=== PATIENT | male | born 1935 | race Caucasian/White ===

== ENCOUNTER → 2016-12-19 | Outpatient (CLI) | payer OTHER ==
[~2016-12-19] VITALS: Ht 177.8 cm; Wt 99.8 kg
[~2016-12-19] MED LIST: ALDACTONE50 MG PO; AMARYL4 MG PO; GLUCOSAMINE CH1 EAC2 PO; METFORMIN HCL500 MG PO; OMEPRAZOLE 20 M20 M1 PO; ONGLYZA5 MG PO
--- NOTE | ~2016-12-19 | S ---
[facility] [place] [address] [address] SURGICAL PATH RPT PROCEDURE Name: LEXIS TOSCANO Room #: REG ACE M.Jeana.#: [id number] Admission: 12/19/16 Date of : 39 Discharge: Report #: [id number] Path Case #: [id number] PATHOLOGY REPORT COLLECTION DATE: 12/19/2016 RECEIVED DATE: 12/19/2016 SUBMITTING PHYS: Dr. Luis Antonio Monterroso OTHER PHYS: Dr. Bessy Arteaga SPECIMEN(S) RECEIVED: A.Polypectomy of gastric of stomach body * * * * * * * * * * * * FINAL DIAGNOSIS: Polyp, of gastric of stomach, endoscopic biopsy: - Compatible with an inflamed hyperplastic polyp. - Negative for dysplasia, intestinal metaplasia, or malignancy. (IUV:pit; 12/21/2016) PATHOLOGIST: Anjana Sánchez M.D. REPORT ELECTRONICALLY SIGNED BY: Anjana Sánchez M.D. DATE/TIME: 12/21/2016 16:23 * * * * * * * * * * * * GROSS PATHOLOGY: Received in formalin labeled "Lexis Toscano, polyp of gastric of stomach biopsy," is a segment of delgado soft tissue measuring 0.5 cm in maximum dimension. The specimen is submitted entirely in cassette A1. (DAC; 12/20/2016) CLINICAL HISTORY: GERD, possible varices, banding INITIAL CPT CODE(S): A; 30432 Professional services performed by [facility] at [facility] [address] , [place] [address] Technical services performed by [facility] at [address] [place] [address], [address], [place] [address]. [facility] [address] [place] [address] SURGICAL PATH RPT PROCEDURE Name: LEXIS TOSCANO Room #: REG ACE Escalante#: [id number] Admission: 12/19/16 Date of : 37 Discharge: Report #: [id number] Path Case #: [id number] [address] PHONE: [phone] DIRECTOR: James Bronson M.D. * * * END OF REPORT * * *
--- NOTE | ~2016-12-19 | P ---
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 He had an upper endoscopy about 6 months ago revealing varices and presents today for followup. There is also a very questionable segment of Carvajal mucosa, which was not biopsied due to esophageal varices. He is also noted to have portal hypertensive gastropathy. PREOPERATIVE DIAGNOSIS: Cirrhosis for followup of esophageal varices. POSTOPERATIVE DIAGNOSES: 1. A 2 to 3+ esophageal varices. 2. Questionable tongue of Carvajal mucosa. 3. Bleeding polyp, body of the stomach. 4. Portal hypertensive gastropathy of stomach. 5. Retained solid food of stomach consistent with gastroparesis. MEDICATIONS: Deep sedation with propofol per anesthesia. SPECIMEN: None. ESTIMATED BLOOD LOSS: Less than 10 mL. PROCEDURE: EGD with snare polypectomy with hemostasis and banding of esophageal varices. FINDINGS: Prior to propofol sedation, procedure of upper endoscopy and banding was discussed with the patient as well as potential risks and its complications. He indicates he understands and desires to proceed. DESCRIPTION OF PROCEDURE: With the patient in left lateral decubitus position, the Fuji video endoscope was inserted in cervical esophagus under direct vision without difficulty. Examination of this organ through its entire length revealed 2 to 3+ esophageal varices in the distal esophagus. There were at least 3 columns of esophageal varices. However, active bleeding was not seen. In addition, an irregular squamocolumnar junction was once again noted and there [facility] [address] [place] [address] PROCEDURE REPORT Name: LEXIS RAMIREZ Room #: REG [facility].#: [id number] Admission: 12/19/16 Attend Phys: Luis Antonio Monterroso MD Discharge: Date of : 37 Report #: [id number] is a possible tongue of Carvajal mucosa. The mucosa appeared to be flat. Again due to his portal hypertension, biopsies were not obtained. Scope was advanced in the stomach, which was examined on end view as well as retroflexed views. Examination of the stomach with end views as well as retroflexed views revealed an area of bright red blood in the distal body of the stomach. This area was further cleared and evaluated and there was noted to be about an 8 mm sessile polyp with oozing of bright red blood. Brisk bleeding was not encountered. Further examination of the stomach on end view as well as retroflexed views revealed evidence of portal hypertensive gastropathy. No other bleeding. 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 The pylorus was patent and there was no obstruction. Also upon retroflexion, no mass lesions were seen in the cardia. The pylorus, duodenal bulb and postbulbar sweep were inspected and noted to be within normal limits. At that point, the scope was drawn back in the body of the stomach. The area of the oozing polyp was irrigated and continued to be oozing. We then did a cold snare polypectomy, removed the polyp and covered with the Mitchell net. The scope was re-introduced and the polypectomy site was identified. It was flat. There was still some oozing. Hemoclip was placed on the polypectomy site with hemostasis and no further oozing was encountered. The scope was then withdrawn back in the esophagus and once again he was noted to have at least 2+ varices and possibly one column which is 3+. Active bleeding was not encountered. It was decided to go ahead and band the varices. The scope was withdrawn and fitted with the banding device, which was reinserted. One band was placed just above the GE junction on all 3 columns. There was good hemostasis. After placement of third band, band became dislodged off of the device. This was in the area of about the level of the banded varices in the distal esophagus. We withdrew the scope and removed the banding device and reinserted the scope. I could not see the band. It was difficult to pass the scope around the banded varices. The esophagus was carefully inspected throughout its entire length, and we also inspected the oropharynx with the scope. The band could not be found anywhere. It was felt that it did pass down into the varices and likely into the stomach. Once the esophagus was noted to be cleared, the scope was withdrawn. The patient tolerated the procedure well. CONDITION OF THE PATIENT UPON DISCHARGE: Following procedure, the patient was drowsy, will be discharged home when fully ambulatory. INSTRUCTIONS TO THE PATIENT AND FAMILY AT THE TIME OF DISCHARGE: Start clear liquids today. Advance diet as tolerated. He should continue his PPI at this point in time. We will have him return to see me in followup in the office in [facility] [address] [place] [address] PROCEDURE REPORT Name: LEXIS RAMIREZ Room #: REG [facility].#: [id number] Admission: 12/19/16 Attend Phys: Luis Antonio Monterroso MD Discharge: Date of : 37 Report #: [id number] the near future. We would consider repeat EGD and banding in about 6 months or so. Also with his bleeding, we will obtain a CBC today. <ELECTRONICALLY SIGNED> By: Luis Antonio Monterroso MD 12/20/16 0744 1104 2223 Luis Antonio Monterroso MD /nt
[2016-12-19 11:47] LABS: HEMOGLOBIN 11.6 gm/dL (14.0-18.0); WBC 3.2 thou/uL (4.0-11.0)
[2016-12-19 11:48] LABS: HEMATOCRIT 34.3 % (42.0-52.0); MCH 29.2 pg (26.0-34.0); MCHC 33.9 g/dL (28.0-37.0); MCV 86.3 fL (80.0-100.0); RBC 3.98 mil/uL (4.50-6.00); RDW 15.9 % (10.5-14.5)
== END | disposition home or self-care (01) ==
LOC: GI 08:02
PROVIDERS: Specialist
DX: I85.10 Secondary esophageal varices without bleeding (principal); K31.7 Polyp of stomach and duodenum; E11.43 Type 2 diabetes mellitus with diabetic autonomic (poly)neuropathy; K31.84 Gastroparesis
CPT/HCPCS: 62110; 62900

== ENCOUNTER → 2017-12-28 | Outpatient (CLI) | payer OTHER ==
[~2017-12-28] VITALS: Ht 177.8 cm; Wt 99.3 kg
[~2017-12-28] MED LIST changes: +TOPROL XL50 MG PO; +VITAMIN D50000 UNIT PO
--- NOTE | ~2017-12-28 | P ---
[facility] [place] [place] [address] PROCEDURE REPORT Name: LEXIS RAMIREZ [facility] [id number] Admission: 12/28/17 Attend Phys: Luis Antonio Monterroso MD Discharge: Date of : 37 Report #: [id number] THIS REPORT FOR: //name// CC: Bessy Monterroso OUTPATIENT UPPER ENDOSCOPY REPORT BRIEF HISTORY: The patient is an 82-year-old male with known history of cirrhosis and end-stage liver disease and esophageal varices for surveillance for banding of esophageal varices. PREOPERATIVE DIAGNOSES: Portal hypertension, esophageal varices. POSTOPERATIVE DIAGNOSES: 1. Esophageal varices. 2. Portal hypertensive gastropathy. 3. Retained solid material in stomach, suggestive gastroparesis. MEDICATIONS: Deep sedation with propofol per anesthesia. SPECIMEN: None. ESTIMATED BLOOD LOSS: 3 mL. PROCEDURE: EGD with banding of esophageal varices, distal esophagus. FINDINGS: Prior to propofol sedation, procedure of upper endoscopy and banding of varices was reviewed with the patient as well as potential risks and its complications. He indicates he understands and desires to proceed. DESCRIPTION OF PROCEDURE: With the patient in left lateral decubitus position, Olympus video endoscope was inserted in the cervical esophagus under direct vision without difficulty. Examination of this organ through stomach revealed normal esophageal mucosa in the proximal esophagus. However, we advanced in the mid esophagus, 3 columns of varices were seen. Just above the GE junction, they were judged to be about 2+ in terms of size. There was no evidence of bleeding or stigmata of bleeding. The squamocolumnar junction otherwise appeared unremarkable. The scope was advanced in the stomach, which was examined on end view as well as retroflexed views. There was a diffuse gastritis induced diffuse erythema and edema. There is also prominence of gastric folds, but obvious gastric varices were not seen. These findings were felt to be [facility] [address] [place] [address] PROCEDURE REPORT Name: TRINI RAMIREZCARROLL GARCIA Room #: REG [facility].#: [id number] Admission: 12/28/17 Attend Phys: Luis Antonio Monterroso MD Discharge: Date of : 37 Report #: [id number] consistent with diffuse portal hypertensive gastropathy. Upon retroflexion, no mass lesions were seen. Interestingly, in the body of the stomach, a hemostatic clip was seen. This was at a polypectomy site of 1 year ago. There is no evidence of ulcers or bleeding. Examination of the distal stomach revealed the gastropathy. There was also retained patch material in stomach consistent with gastroparesis. This extended across the pylorus and duodenal bulb. The duodenal bulb was filled with old food material and was not well seen. At that point, scope was slowly withdrawn and careful circumferential views were obtained. The scope was fitted with a banding device and the scope was reinserted in the esophagus. We advanced in the distal esophagus and its total of 3 columns of varices were banded with good success. Trace amount of blood was seen. Significant bleeding was not encountered with the banding. The patient tolerated the procedure well. CONDITION OF THE PATIENT UPON DISCHARGE: Following procedure, the patient was drowsy and will be discharged home when fully ambulatory. INSTRUCTIONS TO THE PATIENT AND FAMILY AT THE TIME OF DISCHARGE: Varices successfully banded as described above. We will have him return in 6 months for repeat evaluation of his esophagus with regards to varices. Also, we will have him return to see me in followup in the office for further evaluation of his liver. <ELECTRONICALLY SIGNED> By: Luis Antonio Monterroso MD 01/01/18 1231 1040 1950 Luis Antonio Monterroso MD /nt
== END | disposition home or self-care (01) ==
LOC: GI 09:10
DX: K74.60 Unspecified cirrhosis of liver (principal); I85.10 Secondary esophageal varices without bleeding; K76.6 Portal hypertension; K31.89 Other diseases of stomach and duodenum; K72.90 Hepatic failure, unspecified without coma; K29.70 Gastritis, unspecified, without bleeding; I10 Essential (primary) hypertension; E11.9 Type 2 diabetes mellitus without complications; T18.2XXA Foreign body in stomach, initial encounter; K21.9 Gastro-esophageal reflux disease without esophagitis; E78.5 Hyperlipidemia, unspecified; Z88.1 Allergy status to other antibiotic agents; Z79.899 Other long term (current) drug therapy; Z79.84 Long term (current) use of oral hypoglycemic drugs; Z87.891 Personal history of nicotine dependence; Z85.118 Personal history of other malignant neoplasm of bronchus and lung; Z85.05 Personal history of malignant neoplasm of liver; Z98.890 Other specified postprocedural states; Z90.89 Acquired absence of other organs; X58.XXXA Exposure to other specified factors, initial encounter; Y93.89 Activity, other specified; Y92.89 Other specified places as the place of occurrence of the external cause; Y99.8 Other external cause status
CPT/HCPCS: 62110; 62900

== ENCOUNTER → 2018-06-08 | Outpatient (CLI) | payer OTHER ==
[~2018-06-08] VITALS: Ht 177.8 cm; Wt 9.1 kg
[~2018-06-08] MED LIST changes: +CENTRUM SILVER1 EAC2 PO
[2018-06-08 09:18] LABS: HEMOGLOBIN 12.1 gm/dL (14.0-18.0); WBC 3.7 thou/uL (4.0-11.0)
[2018-06-08 09:19] LABS: HEMATOCRIT 34.8 % (42.0-52.0); MCH 32.1 pg (26.0-34.0); MCHC 34.7 g/dL (28.0-37.0); MCV 92.7 fL (80.0-100.0); RBC 3.76 mil/uL (4.50-6.00)
[2018-06-08 09:34] LABS: INR 1.2; PROTIME 12.6 Seconds (9.3-11.4)
--- NOTE | 2018-06-11 11:03 | P ---
[facility] [place] [address] [place] [address] PROCEDURE REPORT Name: LEXIS RAMIREZ Room #: REG [facility] [id number] Admission: 06/08/18 Attend Phys: Luis Antonio Monterroso MD Discharge: Date of : 37 Report #: [id number] THIS REPORT FOR: //name// CC: JENI Monterroso BRIEF HISTORY: The patient is an 83-year-old male, known to me with a history of hepatic resection for a hepatoma. He has cirrhosis of liver and esophageal varices. He underwent banding of 3+ varices about 6 months ago. PREOPERATIVE DIAGNOSES: Cirrhosis of liver and esophageal varices. POSTOPERATIVE DIAGNOSES: 1. Grade 1 esophageal varices, nonbleeding. 2. Portal hypertensive gastropathy. 3. Bezoar, antrum of stomach. MEDICATIONS: Deep sedation with propofol per Anesthesia. SPECIMEN: None. ESTIMATED BLOOD LOSS: None. PROCEDURE: EGD. FINDINGS: Prior to propofol sedation, procedure of upper endoscopy discussed with the patient, all potential risks and its complications. He indicates he understands and desires to proceed. With the patient in left lateral decubitus position, the Olympus videoendoscope was inserted in the cervical esophagus under direct vision without difficulty. Examination of this organ through its entire length revealed normal esophageal mucosa in the proximal esophagus, distally there were varices. The esophagus was insufflated and varices flattened. There were 3 columns of varices, they were judged to be about 1+. There was no stigmata of bleeding. It was felt that banding was not needed at this point in time. Also, he has had previous banding, but no esophageal strictures were seen. The scope was advanced in the stomach, which was examined on end view as well as retroflexed views. He has a marked hypertensive portal gastropathy. However, there is no evidence of ulceration. There was no evidence of ongoing bleeding. In the body of the stomach, a hemostatic clip was seen. This was placed at the time of a polypectomy for a bleeding polyp in 11/2016. There was no bleeding at this time. Examination of distal stomach revealed a large bezoar filling the antrum of the stomach. There is no fluid. We tried to pass the scope around the bezoar and try to advance it across the pylorus into duodenum. However, due to [facility] [address] [place] [address] PROCEDURE REPORT Name: LEXIS RAMIREZ Room #: REG ACE Escalante#: [id number] Admission: 06/08/18 Attend Phys: Luis Antonio Monterroso MD Discharge: Date of : 37 Report #: [id number] the size of the bezoar, the pylorus could not be seen. In view of the fact that he has significant residual solid material in the stomach, we did not want to overly distend the stomach resulting in vomiting and that was felt best at this point not to attempt further efforts to advance the scope into the duodenum. At that point, the scope was slowly withdrawn and careful circumferential views were obtained. Retroflexed maneuver of the scope was also completed. No additional abnormalities were identified. Scope was withdrawn and the patient tolerated the procedure well. CONDITION OF THE PATIENT UPON DISCHARGE: The patient is drowsy and will be discharged home when fully ambulatory. INSTRUCTIONS TO THE PATIENT AND FAMILY AT THE TIME OF DISCHARGE: As far his gastric varices, I do not see a need for banding at this point in time. However, would give consideration for repeat examination in about 6 months. He does have evidence of a gastric bezoar. He does have diabetes and likely has gastroparesis. We will have him follow a clear liquid diet for 3 days. We will also have him see a dietitian with regards to dietary changes for gastroparesis. He should return to see me in followup in the office in about 6 weeks. He does complain of frequent throat clearing, but denies heartburn. He is on omeprazole 20 mg daily, we will have him increase it to 40 mg daily. He also has significant abdominal distention on exam today as well as pedal edema. We will obtain an ultrasound to further evaluate his liver as well as to evaluate for ascites. <ELECTRONICALLY SIGNED> By: Luis Antonio Monterroso MD 06/11/18 1103 1015 1431 Luis Antonio Monterroso MD /nt
== END | disposition home or self-care (01) ==
LOC: GI 08:02
PROVIDERS: Anesthesiology
DX: K31.89 Other diseases of stomach and duodenum (principal); I85.00 Esophageal varices without bleeding; K76.6 Portal hypertension; T18.2XXA Foreign body in stomach, initial encounter; I10 Essential (primary) hypertension; E11.9 Type 2 diabetes mellitus without complications; Z87.19 Personal history of other diseases of the digestive system; Z98.890 Other specified postprocedural states; Z79.899 Other long term (current) drug therapy; Z85.118 Personal history of other malignant neoplasm of bronchus and lung; Z85.05 Personal history of malignant neoplasm of liver; Z88.8 Allergy status to other drugs, medicaments and biological substances; X58.XXXA Exposure to other specified factors, initial encounter; Y93.89 Activity, other specified; Y92.89 Other specified places as the place of occurrence of the external cause; Y99.8 Other external cause status

== ENCOUNTER 2018-07-23 11:09 | Inpatient (IN) | payer OTHER ==
[~2018-07-23] VITALS: Ht 175.3 cm; Wt 100.3 kg
[2018-07-23 11:09] VITALS: BP 110/60
[~2018-07-23 11:09] MED LIST changes: +METOPROLOL TART25 MG PO; -TOPROL XL50 MG PO
[2018-07-23 12:02] LABS: ABSOLUTE NEUTROPHILS 2.6 thou/uL (1.4-8.2); HEMOGLOBIN 12.4 gm/dL (14.0-18.0)
[2018-07-23 12:03] LABS: BASOPHILS 0.8 % (0.0-2.0); HEMATOCRIT 37.2 % (42.0-52.0); LYMPHOCYTES 16.4 % (24.0-44.0); MCH 31.5 pg (26.0-34.0); MCHC 33.3 g/dL (28.0-37.0); MCV 94.6 fL (80.0-100.0); POLYS 71.8 % (36.0-66.0); RBC 3.93 mil/uL (4.50-6.00); RDW 15.3 % (10.5-14.5); WBC 3.6 thou/uL (4.0-11.0)
[2018-07-23 12:09] LABS: CALCIUM 9.4 mg/dL (8.5-10.1); CREATININE 1.2 mg/dL (0.7-1.3); POTASSIUM 4.5 mmol/L (3.5-5.1)
[2018-07-23 12:14] LABS: ALBUMIN 2.9 g/dL (3.4-5.0); INR 1.2; TOTAL BILIRUBIN 1.4 mg/dL (<0.1-1.0); TOTAL PROTEIN 6.2 g/dL (6.4-8.2)
[2018-07-23 12:46] LABS: PLATELET COUNT 47 thou/uL (150-400)
[2018-07-23 18:36] VITALS: BP 121/77
[2018-07-23 18:50] VITALS: BP 132/64
[2018-07-23 19:32] VITALS: BP 135/69
[2018-07-24 04:05] VITALS: BP 123/61
[2018-07-24 04:05] LABS: CALCIUM 8.4 mg/dL (8.5-10.1); CREATININE 1.1 mg/dL (0.7-1.3); POTASSIUM 4.2 mmol/L (3.5-5.1)
[2018-07-24 04:42] LABS: HEMATOCRIT 31.4 % (42.0-52.0); HEMOGLOBIN 10.7 gm/dL (14.0-18.0); MCH 32.1 pg (26.0-34.0); MCHC 34.2 g/dL (28.0-37.0); MCV 94.1 fL (80.0-100.0); RBC 3.33 mil/uL (4.50-6.00); RDW 14.6 % (10.5-14.5); WBC 2.8 thou/uL (4.0-11.0)
--- NOTE | 2018-07-24 06:20 | NUR ---
ARRIVED ON UNIT VIA CART FROM ED ACCOMPAINED BY ED OSMAR. PATIENT ALERT AND ORIENTED X4. WALKS STEADY BUT HAS HX OF FALLING SO IS A FALL RISK. ABD VERY DISTENDED AND FIRM. BOWEL SOUNDS ACTIVE. DENIES PAIN. ACCUCHECK WAS 101. RECIEVED NO COVERAGE. PATIENT SLEPT OFF AND ON DURING NIGHT.
[2018-07-24 07:50] VITALS: BP 128/69
[2018-07-24 07:52] VITALS: BP 107/55; BP 112/57
[2018-07-24 11:25] VITALS: BP 136/69
[2018-07-24 11:59] LABS: CLARITY TURBID; COLOR RED; SOURCE ABDOMINAL; TOTAL VOLUME 60 mL
[2018-07-24 12:04] LABS: SOURCE ABDOMINAL
[2018-07-24 12:54] LABS: BF NUCLEATED CELLS 382; BF RBC 31637
[2018-07-24 13:27] LABS: BF MACROPHAGE 18; BF NEUTROPHILS 19
--- NOTE | 2018-07-24 13:33 | NUR ---
ASSUMED CARE AT 0700. AXOX4. 1 UNIT PLATETET GIVEN. US PARACENTESIS COMPLETED. AWAITING GI ROUNDING. SEEN BY AT BEDSIDE. NO S/S ACUTE DISTRESS NOTED OR REPORTED AT THIS TIME. WILL CONT TO MONITOR FOR ANY CHAGNES IN CONDITION.
[2018-07-24] MEDS ORDERED: LASIX 40 MG TAB40 M1 PO (14:30)
[2018-07-24] MEDS ORDERED: GLUCOPHAGE500 MG PO (14:30)
[2018-07-24 14:55] VITALS: BP 136/69
[2018-07-24 15:27] VITALS: BP 132/67
--- NOTE | 2018-07-24 16:33 | NUR ---
PT ADMITTED RELATED TO ASCITIES. CM REVIEWED CHART AND SPOKE WITH CARE TEAM. CM MET WITH PT AT BEDSIDE THIS DAY. PT IS A&O X4. CM ROLE INTRODUCED. PT INDICATED THAT HE LIVES IN A HOUSE WITH HIS WIDE WITH 1 STEP TO ANSELMO AND 12 STEPS TO SECOBD STORY. PT INDICATED HE USED A CANE TO ASSIST WITH MOBILITY OPTIONS ADVISOR. PT INDICATED NO HH HX. PT STATED HE PLANS TO RETURN HOME ONCE MEDICALLY STABLE. IT IS ANTICIPATE THAT PT WILL DISCHARGE HOM[facility] TODAY WITH NO NEEDS.
[2018-07-25 09:12] LABS: BODY FLUID ALBUMIN 0.5 g/dL (()); BODY FLUID AMYLASE 11 U/L (()); BODY FLUID GLUCOSE 103 mg/dL (()); BODY FLUID LDH 42 IU/L (())
[2018-07-26 13:13] LABS: BODY FLUID PROTEIN 1.1 g/dL (())
--- NOTE | 2018-07-27 15:25 | PATH ---
[address] [place] [address] PATHOLOGY RPT PROCEDURE Name: LEXIS RAMIREZ Room #: 462-P DIS IN M.R.#: [id number] ������������������ Admission: 07/23/18 ������������������ Date of : 37 Discharge: 07/24/18 Report #: [id number] Path Case #: [id number] Note [facility] Accession Number: [id number] TESTS RESULT FLAG UNITS REF RANGE LAB Clinician Provided Cytology Information No. of containers..01 Other (Miscellaneous) Source: ABDOMINAL FLUID DIAGNOSIS: 02 ABDOMINAL FLUID NEGATIVE FOR MALIGNANT CELLS. MESOTHELIAL CELLS ARE PRESENT. THIS INTERPRETATION INCLUDES EVALUATION OF A CELL BLOCK. Signed out by: 02 Anjana Sánchez MD, Pathologist NPI- [id number] Performed by: Ascencion Trevino, Curriculum And Instruction Director ([facility]) Gross description: 01 30ML, RED, CLOUDY /LCS FLAG LEGEND: L-Low Normal,H-High Normal,LL-Alert Low,HH-Alert High <-Panic Low,>-Panic High,A-Abnormal,AA-Critical Abnormal Performed at: [address] [place] [address] Andre Espino MD, [address] [address] Anjana Sánchez MD, Specimen Comment: Report sent to Performed at: [address], [place], [place] [id number] MD Andre Espino MD Phone: [phone]
== END 2018-07-24 16:40 | disposition home or self-care (01) | DRG 432 ==
LOC: ER 11:09 → 4W 13:42 → EROBS 13:42 → 4W 18:48
PROVIDERS: Nurse Practitioner; Student in an Organized Health Care Education/Training Program; ADMIT Hospitalist
PROC: 30233R1 Transfusion of Nonautologous Platelets into Peripheral Vein, Percutaneous Approach (ICD-10-PCS; principal; 2018-07-24)
PROC: 0W9G3ZZ Drainage of Peritoneal Cavity, Percutaneous Approach (ICD-10-PCS; principal; 2018-07-24)
DX: K70.31 Alcoholic cirrhosis of liver with ascites (principal); E43 Unspecified severe protein-calorie malnutrition; I85.10 Secondary esophageal varices without bleeding; D69.59 Other secondary thrombocytopenia; E11.9 Type 2 diabetes mellitus without complications; K72.90 Hepatic failure, unspecified without coma; K59.00 Constipation, unspecified; I10 Essential (primary) hypertension; K21.9 Gastro-esophageal reflux disease without esophagitis; H35.30 Unspecified macular degeneration; Z87.891 Personal history of nicotine dependence; Z86.010 Personal history of colon polyps; Z85.05 Personal history of malignant neoplasm of liver; Z85.118 Personal history of other malignant neoplasm of bronchus and lung; Z79.84 Long term (current) use of oral hypoglycemic drugs; Z79.899 Other long term (current) drug therapy; Z88.1 Allergy status to other antibiotic agents
CPT/HCPCS: 10040

== ENCOUNTER → 2018-12-14 | Outpatient (CLI) | payer OTHER ==
[~2018-12-14] MED LIST changes: +GLUCOPHAGE500 MG PO; +LASIX 40 MG TAB40 M1 PO
[2018-12-14 15:09] LABS: CLARITY TURBID; COLOR RED; SOURCE ABDOMINAL; TOTAL VOLUME 60 mL
[2018-12-14 15:21] LABS: BF NUCLEATED CELLS 520; BF RBC 24313
[2018-12-14 16:29] LABS: BF MACROPHAGE 27; BF NEUTROPHILS 10
[2018-12-15 14:06] LABS: BODY FLUID ALBUMIN 0.6 g/dL (()); BODY FLUID AMYLASE 15 U/L (()); BODY FLUID GLUCOSE 149 mg/dL (()); BODY FLUID LDH 36 IU/L (()); BODY FLUID PROTEIN 1.4 g/dL (())
[2018-12-17 08:20] LABS: SOURCE ABDOMINAL
--- NOTE | 2018-12-18 15:07 | PATH ---
[facility] [address] [place] [address] PATHOLOGY RPT PROCEDURE Name: LEXIS RAMIREZ Room #: REG ACE Mixon.#: [id number] ������������������ Admission: 12/14/18 ������������������ Date of : 37 Discharge: Report #: [id number] Path Case #: [id number] Note [facility] Accession Number: [id number] TESTS RESULT FLAG UNITS REF RANGE LAB Clinician Provided Cytology Information No. of containers..01 Other (Miscellaneous) Source: 01 ABDOMINAL FLUID DIAGNOSIS: 02 ABDOMINAL FLUID NEGATIVE FOR MALIGNANT EPITHELIAL CELLS. REACTIVE MESOTHELIAL CELLS ARE PRESENT. THIS INTERPRETATION INCLUDES EVALUATION OF A CELL BLOCK. SCATTERED BENIGN AND REACTIVE MESOTHELIAL CELLS PRESENT AMONGST PREDOMINANTLY CHRONIC INFLAMMATORY CELLS, BLOOD AND PERIPHERAL BLOOD ELEMENTS. Pathologist ICD10: 02 R18.8 Signed out by: 02 Rachelle Staples MD, Pathologist NPI- [id number] Performed by: 01 Akua Scott, Central Supply Tech ([facility]) Ascencion Trevino Central Supply Tech ([facility]) Gross description: 01 14ML, RED, CLOUDY /LCS FLAG LEGEND: L-Low Normal,H-High Normal,LL-Alert Low,HH-Alert High <-Panic Low,>-Panic High,A-Abnormal,AA-Critical Abnormal Performed at: 01 [facility] [address] [address] Andre Espino MD, [address] [address] James Bronson MD, Specimen Comment: A courtesy copy of this report has been sent to Specimen Comment: [phone], . Specimen Comment: Report sent to / DR LONDONO Specimen Comment: A duplicate report has been generated due to demographic updates. Performed at: [address] [address] PATHOLOGY RPT PROCEDURE Name: LEXIS RAMIREZ Room #: REG [facility] Boris#: [id number] ������������������ Admission: 12/14/18 ������������������ Date of : 39 Discharge: Report #: [id number] Path Case #: [id number] [facility] [address] [place] [address] [address], [place], [place] [id number] MD Andre Espino MD Phone: [phone]
== END | disposition home or self-care (01) ==
LOC: ULTRA 12:17
PROVIDERS: Specialist
DX: R18.8 Other ascites (principal); D69.6 Thrombocytopenia, unspecified; E11.9 Type 2 diabetes mellitus without complications; I10 Essential (primary) hypertension; K21.9 Gastro-esophageal reflux disease without esophagitis; Z87.891 Personal history of nicotine dependence; Z88.8 Allergy status to other drugs, medicaments and biological substances; Z79.899 Other long term (current) drug therapy; Z85.118 Personal history of other malignant neoplasm of bronchus and lung; Z85.05 Personal history of malignant neoplasm of liver; Z98.890 Other specified postprocedural states

== ENCOUNTER → 2018-12-27 | Outpatient (CLI) | payer OTHER ==
[~2018-12-27] VITALS: Ht 175.3 cm; Wt 81.6 kg
[~2018-12-27] MED LIST changes: +ALOGLIPTIN25 MG PO; +AMARYL2 MG PO; +CONSTULOSE10 GM/152 PO; +LASIX 40 MG TAB40 M2 PO; +OMEPRAZOLE40 MG PO; +VITAMIN B125000 MCG PO
--- NOTE | 2018-12-27 11:20 | P ---
[facility] [place] [address] PROCEDURE REPORT Name: LEXIS RAMIREZ Room #: REG [facility] Oral.#: [id number] Admission: 12/27/18 ������������������ Attend Phys: Luis Antonio Monterroso MD Discharge: ������������������ Date of : 39 Report #: [id number] THIS REPORT FOR: //name// CC: Bessy Monterroso DATE OF SERVICE: 12/27/2018 OUTPATIENT UPPER ENDOSCOPY REPORT BRIEF HISTORY: The patient is an 83-year-old male with a history of cirrhosis and hepatoma with previous hepatic resection for hepatoma for surveillance for esophageal varices. He is noted to have grade 1 esophageal varices and returns today for followup. He has not demonstrated any obvious evidence of gastrointestinal bleeding at this time. PREOPERATIVE DIAGNOSIS: Portal hypertension and esophageal varices. POSTOPERATIVE DIAGNOSES: 1. Grade 1 esophageal varices. 2. Marked portal hypertensive gastropathy. 3. Question of gastric varices. 4. Retained food consistent with gastroparesis. MEDICATIONS: Deep sedation with propofol per anesthesia. SPECIMEN: None. ESTIMATED BLOOD LOSS: None. PROCEDURE: EGD. FINDINGS: Prior to propofol sedation, procedure of upper endoscopy and potential banding was discussed with the patient as well as potential risks and its complications. He indicates he understands and desires to proceed. DESCRIPTION OF PROCEDURE: With the patient in the left lateral decubitus position, the Olympus video endoscope was inserted into the cervical esophagus under direct vision without difficulty. Examination of this organ through its entire length revealed normal esophageal mucosa in the proximal esophagus, distally 1-2 small columns of varices were seen, they were no more than 1+. There were no stigmata of bleeding. The squamocolumnar junction was unremarkable. The scope was advanced into the stomach, was examined on end view as well as retroflexed views. There was noted to be a marked portal hypertensive gastropathy with erythema throughout the entire stomach. However, [facility] [address] [place] [address] PROCEDURE REPORT Name: LEXIS RAMIREZIG Room #: REG [facility].#: [id number] Admission: 12/27/18 ������������������ Attend Phys: Luis Antonio Monterroso MD Discharge: ������������������ Date of : 39 Report #: [id number] there were no mucosal erosions, ulcers, or stigmata of bleeding. In addition, in the antrum of the stomach, there was a bolus of food material consistent with gastroparesis. There was no liquid in his stomach. Upon retroflexion, he is noted to have the portal hypertensive gastropathy. There is some question of gastric varices. However, I did not want to fully distend the stomach because of the solid material in the antrum of the stomach and risk of vomiting. Subsequently, the pylorus was examined and noted to be unremarkable. There was no evidence of outlet obstruction. The duodenal bulb and postbulbar duodenal sweep were unremarkable. At that point, the scope was slowly withdrawn and careful circumferential views confirmed the above findings. The patient tolerated the procedure well. The varices were felt to be stable and banding was not felt to be indicated today. CONDITION OF THE PATIENT UPON DISCHARGE: Following procedure, the patient was drowsy, arousable, conversant, and will be discharged home when fully ambulatory. INSTRUCTIONS TO THE PATIENT AND FAMILY AT THE TIME OF DISCHARGE: He does have varices, but they appear to be stable and 1+ at this point in time. Therefore, banding was not undertaken. There were no stigmata of bleeding. He continues to be somewhat of a challenge with management. He comes today with a list of medications that he reportedly is currently taking at home at this time. However, I am not sure that that list is correct, and also, in spite of having list, he cannot tell me what he actually does at home. It is also noted that he continues to have complaints of dizziness and on his list of medications is metoprolol. He should not be taking a beta danyell with his dizziness even though he does have portal hypertension. He continues to complain of dizziness when standing. We will have him discontinue his metoprolol. We will have him return for followup in the office in several weeks. We will discuss with his and make sure they bring every medicine bottle he is using, so that they can be reviewed in the office. We will have him continue spironolactone and Aldactone. He did have a recent large volume paracentesis and he does have evidence of ascites today. His dizziness continues to be problematic with regards to management of his portal hypertension. ��������������������������������������������� <ELECTRONICALLY SIGNED> ���������������������������������������� By: Luis Antonio Monterroso MD ��������������������������������������������� 12/27/18 1120 [id number] Luis Antonio Monterroso MD /graham
== END | disposition home or self-care (01) ==
LOC: GI 07:04
DX: I85.00 Esophageal varices without bleeding (principal); K31.89 Other diseases of stomach and duodenum; K76.6 Portal hypertension; K31.84 Gastroparesis; I10 Essential (primary) hypertension; E11.9 Type 2 diabetes mellitus without complications; K21.9 Gastro-esophageal reflux disease without esophagitis; Z87.891 Personal history of nicotine dependence; Z85.118 Personal history of other malignant neoplasm of bronchus and lung; Z85.05 Personal history of malignant neoplasm of liver; Z98.890 Other specified postprocedural states; Z79.899 Other long term (current) drug therapy; Z88.8 Allergy status to other drugs, medicaments and biological substances
CPT/HCPCS: 62110; 62900

== ENCOUNTER → 2019-03-19 | Outpatient (CLI) | payer OTHER ==
[2019-03-19 14:03] LABS: BF NUCLEATED CELLS 907; BF RBC 18690
[2019-03-19 17:23] LABS: BF NEUTROPHILS 6; CLARITY CLOUDY; COLOR RED; SOURCE ABDOMINAL; TOTAL VOLUME 60 mL
[2019-03-19 17:24] LABS: BF MACROPHAGE 18
[2019-03-20 09:01] LABS: SOURCE ABDOMINAL
[2019-03-20 17:07] LABS: BODY FLUID ALBUMIN 1.1 g/dL (Not Estab.); BODY FLUID AMYLASE 24 U/L (()); BODY FLUID GLUCOSE 80 mg/dL (()); BODY FLUID LDH 77 IU/L (()); BODY FLUID PROTEIN 2.1 g/dL (())
--- NOTE | 2019-03-22 13:07 | PATH ---
[facility] [address] [place] [address] PATHOLOGY RPT PROCEDURE Name: LEXIS RAMIREZ Room #: REG [facility].#: [id number] Admission: 03/19/19 Date of : 39 Discharge: Report #: [id number] Path Case #: [id number] Note [facility] Accession Number: [id number] TESTS RESULT FLAG UNITS REF RANGE LAB Clinician Provided Cytology Information No. of containers..01 Other (Miscellaneous) Source: ASCITES FLUID DIAGNOSIS: 02 ASCITES FLUID NEGATIVE FOR MALIGNANT EPITHELIAL CELLS. MESOTHELIAL CELLS ARE PRESENT. CHRONIC INFLAMMATION IN THE BACKGROUND. Pathologist ICD10: 02 R18.8 Signed out by: Anjana Sánchez MD, Pathologist NPI- [id number] Performed by: Ruben Grayson, [employer] Technician ([facility]) Gross description: 01 10 ML, ORANGE, CLOUDY /LCS 05/28/1840 0000 Local FLAG LEGEND: L-Low Normal,H-High Normal,LL-Alert Low,HH-Alert High <-Panic Low,>-Panic High,A-Abnormal,AA-Critical Abnormal Performed at: [address] [place] [address] Andre Espino MD, [address] [id number] Anjana Sánchez MD, Specimen Comment: A duplicate report has been generated due to demographic updates. Performed at: [address], [place], [place] [id number] MD Andre Espino MD Phone: [phone]
== END ==
LOC: ULTRA 10:07
PROVIDERS: Specialist
DX: R18.8 Other ascites (principal)

== ENCOUNTER → 2019-05-20 | Outpatient (CLI) | payer OTHER ==
[2019-05-20 11:44] VITALS: BP 118/60
--- NOTE | 2019-05-20 11:47 | NUR ---
PT HERE ON CART AFTER PARACENTESIS, TOOK OFF 5.7 LITERS AND 25GMS OF IV ALBUMIN ORDERED. PT TOLERATED THE INFUSION WELL, ASKED APPORPRIATE QUESTIONS AND WAS ABLE TO TRANSFER TO / WITHOUT INCIDENT. WHEELED PT TO CAR AFTER PROCEDURE TO ENSURE SAFETY. PT HAS 4+ EDEMA IN BILAT LOWER EXTREMETIES AND IS WEAK DUE TO HIS DX. PT A&OX3 AND VERY PLEASANT.
== END ==
LOC: OPONC 07:41
DX: R18.8 Other ascites (principal)
CPT/HCPCS: 95000

== ENCOUNTER → 2019-06-06 | Outpatient (CLI) | payer OTHER ==
[2019-06-06 14:25] VITALS: BP 118/76
--- NOTE | 2019-06-06 15:43 | NUR ---
PATIENT CAME TO US FROM US DEPT. FOR ALBUMIN INFUSION POST PARACENTESIS. 6.5 L ASCITIC FLUID REMOVED IN US. 50 GMS ALBUMIN IV GIVEN PER STANDING ORDER AND PATIENT TOLERATED WELL WITHOUT INCIDENT. VITAL SIGNS STABLE. REMOVED IV AND DISMISSED VIA WC IN STABLE CONDITION.
== END ==
LOC: ULTRA 11:43
DX: R18.8 Other ascites (principal); K74.60 Unspecified cirrhosis of liver
CPT/HCPCS: 95000

== ENCOUNTER 2019-09-26 10:30 | Emergency (ER) | payer OTHER ==
[~2019-09-26] VITALS: Ht 170.2 cm; Wt 63.5 kg
[2019-09-26 11:58] LABS: ABSOLUTE NEUTROPHILS 2.9 thou/uL (1.4-8.2); BASOPHILS 0.6 % (0.0-2.0); EOSINOPHILS 1.1 % (0.0-3.0); HEMATOCRIT 35.4 % (42.0-52.0); HEMOGLOBIN 12.2 gm/dL (14.0-18.0); LYMPHOCYTES 11.3 % (24.0-44.0); MCH 32.5 pg (26.0-34.0); MCHC 34.3 g/dL (28.0-37.0); MCV 94.6 fL (80.0-100.0); MONOCYTES 11.2 % (1.0-8.0); POLYS 75.8 % (36.0-66.0); RBC 3.74 mil/uL (4.50-6.00); RDW 17.4 % (10.5-14.5); WBC 3.8 thou/uL (4.0-11.0)
[2019-09-26 12:06] LABS: CREATININE 1.3 mg/dL (0.7-1.3); POTASSIUM 3.7 mmol/L (3.5-5.1)
[2019-09-26 12:09] LABS: APTT 30.4 Seconds (24.5-32.8); INR 1.2; PROTIME 12.7 Seconds (9.3-11.4)
[2019-09-26 12:12] LABS: ALBUMIN 1.9 g/dL (3.4-5.0); DIRECT BILIRUBIN 0.3 mg/dL (<0.1-0.2); TOTAL BILIRUBIN 1.4 mg/dL (<0.1-1.0); TOTAL PROTEIN 5.7 g/dL (6.4-8.2)
[2019-09-26 12:17] LABS: ANISOCYTOSIS 1+; PLATELET COUNT 65 thou/uL (150-400)
[2019-09-26 13:50] VITALS: BP 107/64
== END 2019-09-26 14:00 | disposition home or self-care (01) ==
LOC: ER 10:30
PROVIDERS: Emergency Medicine
DX: R18.8 Other ascites (principal); E88.09 Other disorders of plasma-protein metabolism, not elsewhere classified; K72.90 Hepatic failure, unspecified without coma; C22.9 Malignant neoplasm of liver, not specified as primary or secondary; R06.02 Shortness of breath; R05 Cough; R53.1 Weakness; E11.9 Type 2 diabetes mellitus without complications; K21.9 Gastro-esophageal reflux disease without esophagitis; I10 Essential (primary) hypertension; Z79.899 Other long term (current) drug therapy

== ENCOUNTER → 2019-09-27 | Outpatient (CLI) | payer OTHER ==
[2019-09-27 14:12] VITALS: BP 121/68
--- NOTE | 2019-09-27 15:43 | NUR ---
CAME TO CLINIC AFTER PARACENTESIS. 12 LITERS REMOVED IN ULTRA SOUND DEPT. INFUSED 75 GRAMS OF ALBUMIN PER STANDING ORDER. DTR WITH PATIENT. FIRM PITTING LE EDEMA NOTED. PATIENT NEEDED 2 ASSIST FOR TRANSFERS. TOLERATED INFUSION WELL WITH NO ADVERSE REACTION NOTED. REMOVED IV AND DISMISSED IN WEAK BUT STABLE CONDITION.
== END ==
LOC: ULTRA 10:22
DX: K74.60 Unspecified cirrhosis of liver (principal); R18.8 Other ascites
CPT/HCPCS: 95000